=== PATIENT | female | born 1985 | race Caucasian/White ===

== ENCOUNTER 2023-02-03 06:16 | Day surgery (SDC) | payer BC ==
[2023-01-27 11:55] VITALS: BMI 19.3
[2023-02-03] MEDS ORDERED: LIDOCAINE 1%-EPI 1:100,000 30 ML MDV IJ ONE (07:08)
[2023-02-03] MEDS ORDERED: TETRACAINE 0.5% OPHTH SOLN 2 ML BOTTLE ONE (07:08)
[2023-02-03] MEDS ORDERED: POVIDONE-IODINE 5% OPHTHALMIC PREP 30 ML SOLUTION ONE (07:08)
[2023-02-03] MEDS ORDERED: OXYMETAZOLINE 0.05% NASAL SOLUTION 15 ML BOTTLE NS ONE (07:08)
[2023-02-03] MEDS ORDERED: BUPIVACAINE HCL/PF 0.5% (5MG/ML) 10 ML VIAL ONE (07:08)
[2023-02-03] MEDS ORDERED: THROMBIN (BOVINE) 5,000 UNIT VIAL TP ONE (07:08)
[2023-02-03] MEDS ORDERED: ERYTHROMYCIN 0.5% OPHTHALMIC OINTMENT 3.5 GM TUBE ONE (07:08)
[2023-02-03] MEDS ORDERED: ceFAZolin SODIUM 1 GM VIAL ONE ×2 (07:20→07:56)
[2023-02-03] MEDS ORDERED: MIDAZOLAM HCL 2 MG/2 ML SINGLE DOSE VIAL ONE (07:22)
[2023-02-03] MEDS ORDERED: PROPOFOL 20 ML ONE (07:22)
[2023-02-03] MEDS ORDERED: ONDANSETRON 4 MG/2 ML VIAL ONE ×2 (07:56→09:07)
[2023-02-03] MEDS ORDERED: DEXAMETHASONE SOD PHOSPHATE 4 MG/1 ML VIAL ONE (07:56)
[2023-02-03] MEDS ORDERED: SEVOFLURANE 250 ML BTL ONE (07:59)
[2023-02-03] MEDS ORDERED: oxyCODONE HCL 5 MG TABLET PO PRN (09:22)
[2023-02-03] MEDS ORDERED: ONDANSETRON 4 MG/2 ML VIAL IVPUSH PRN (09:22)
[2023-02-03] MEDS ORDERED: ACETAMINOPHEN 1000 MG/100 ML BAG IVPB ONE (09:24)
[2023-02-03] MEDS ORDERED: ACETAMINOPHEN INJECTION 100 ML IVPB ONE (09:25)
[2023-02-03] MEDS ORDERED: LACTATED RINGERS SOLUTION 1,000 ML IV SCH (09:30)
[2023-02-03] MEDS ORDERED: FENTANYL CITRATE/PF 50 MCG/ML VIAL ONE (09:35)
[2023-02-03 10:21] VITALS: RESP 16; TEMP 97.6
[2023-02-03] MEDS ORDERED: SCOPOLAMINE HYDROBROMIDE 1 PATCH PATCH.TD72 ONE (10:29)
[2023-02-03] MEDS ORDERED: SCOPOLAMINE HYDROBROMIDE 1 PATCH PATCH.TD72 TD ONE (10:32)
[2023-02-03] MEDS ORDERED: oxyCODONE HCL 5 MG TABLET ONE (11:07)
[2023-02-03 11:30] VITALS: BP 111/67; PULSE 79
== END 2023-02-03 11:20 | disposition home or self-care (01) ==
LOC: FASU 06:16
PROVIDERS: ATTEND Ophthalmology
PROC: 09JY8ZZ Inspection of Sinus, Via Natural or Artificial Opening Endoscopic (ICD-10-PCS; 2023-02-03)
PROC: 081Y0Z3 Bypass Left Lacrimal Duct to Nasal Cavity, Open Approach (ICD-10-PCS; principal; 2023-02-03 08:18)
DX: H04.552 Acquired stenosis of left nasolacrimal duct (principal)
CPT/HCPCS: 81025; 87070; 87186; 87205; 88304-TC; 88311-TC; 94760